=== PATIENT | male | born 1965 | race Caucasian/White ===

== ENCOUNTER 2017-05-04 12:21 | Emergency (ER) | payer BC ==
[~2017-05-04] VITALS: Ht 177.8 cm; Wt 104.3 kg
--- NOTE | 2017-05-04 12:42 | ER.PDOC ---
General Chief Complaint: Extremities Stated Complaint: LACERATION Time seen by MD: 12:33 Source: patient Exam Limitations: no limitations History of Present Illness Initial Comments 51 years old male patient who was at work and the dorsal side of his left hand hit a edge grinder and caused a laceration over his index finger. He has been bleeding but covered it and applied pressure and the bleeding is less now. Occurred: just prior to arrival Where: work Severity: moderate Context: laceration Location of Injury: (L) hand Modifying Factors: pain on movement Past Medical History Medical History: no pertinent history Surgical History: no surgical history Social History Smoking: non-smoker Alcohol Use: other Drug Use: none Review of Systems Constitutional: denies no symptoms reported, denies see HPI, denies chills, denies diaphoresis, denies fever, denies malaise, denies weakness, denies other EENTM: denies no symptoms reported, denies see HPI, denies eye pain, denies blurred vision, denies tearing, denies double vision, denies ear pain, denies ear discharge, denies nose pain, denies nose congestion, denies throat pain, denies throat swelling, denies mouth pain, denies mouth swelling, denies other Respiratory: denies no symptoms reported, denies see HPI, denies cough, denies orthopnea, denies shortness of breath, denies stridor, denies wheezing, denies other Cardiovascular: denies no symptoms reported, denies see HPI, denies chest pain , denies edema, denies palpitations, denies syncope, denies other Gastrointestinal: denies no symptoms reported, denies see HPI, denies abdominal pain, denies constipation, denies diarrhea, denies nausea, denies vomiting, denies other Genitourinary: denies no symptoms reported, denies see HPI, denies discharge, denies dysuria, denies frequency, denies hematuria, denies pain, denies other Musculoskeletal: denies no symptoms reported, denies see HPI, denies back pain , denies gout, denies joint pain, denies joint swelling, denies muscle pain, denies muscle stiffness, denies neck pain, denies other Skin: see HPI Psychiatric/Neurological: denies no symptoms reported, denies see HPI, denies anxiety, denies depressed, denies emotional problems, denies headache, denies numbness, denies paresthesia, denies pre-existing deficit, denies seizure, denies tingling, denies tremors, denies weakness, denies other Physical Exam General Appearance: Alert, No Apparent Distress Hand: tenderness, limited ROM (due to pain) Wrist: nml inspection Neuro: sensation nml, motor nml Vascular: no vascular compromise Tendons: tendon function nml Forearm/Elbow/Arm: uninjured above wrist Skin: warm/dry Head/ENT: nml inspection Resp/CVS: no resp distress, lungs clear, heart sounds nml, reg. rate & rhythm Laceration/Wound Repair Laceration/Wound Repair : Wound Length (cm): 5 Distal NVT: neuro intact, vasc intact Wound's Depth, Shape: superficial, linear Wound Explored: clean Tendon Intact: Yes Wound Repaired With: sutures Suture Size/Type: 4:0, ethilon Suture Style: interupted Number of Sutures: 6 Sterile Dressing Applied?: No Splint Applied?: No Sling Applied?: No EKG/XRAY/CT/US XRAY: hand XRAY Comments: No signs of acute fracture Departure Time of Disposition: 13:23 Disposition: 01 HOME, SELF-CARE Impression: Primary Impression: Laceration of hand Condition: Stable Comments Patient was instructed to keep the area clean and keep the first bandage for at least 24h to allow the wound some time to heal. We gave him the leftover of the neosporin and the bandages. Recommended to visit his PCP in 10 days to have it removed. Patient had his tetanus shot 5 years ago. Wound looks clean and no muscle, tendon involvement. No neurovascular compromise. Patient vocied understanding and agrees on the plan. Case was discussed with Dr. Amaya who was present during the procedure. BRITTA RAMÍREZ MD May 04, 2017 12:41
--- NOTE | 2017-05-04 12:54 | DIREP ---
PROCEDURE:XRAY HAND MIN 3 VW-LT COMPARISON:None. INDICATIONS:Hand laceration FINDINGS: BONES: Some limitations due to the overlapping bandaging material. No visible fracture. JOINTS: No dislocation. OTHER: Soft tissue swelling/changes. CONCLUSION: 1. No evidence of acute fracture. Dictated by: Carmine Worthy M.D. on 05/04/2017 at 12:48 PM
[2017-05-04] MEDS ORDERED: TRIPLE ANTIBIOTIC OINTMENT TP ONE (13:11)
== END 2017-05-04 13:24 | disposition home or self-care (01) ==
LOC: ER 12:21 → EDSTATUS 12:26 → ER 13:24
DX: S61.412A Laceration without foreign body of left hand, initial encounter (principal); W27.8XXA Contact with other nonpowered hand tool, initial encounter; Y93.89 Activity, other specified; Y92.69 Other specified industrial and construction area as the place of occurrence of the external cause; Y99.0 Civilian activity done for income or pay
CPT/HCPCS: 12002; 99283; 99284; 73130-LT